=== PATIENT | female | born 1975 | race African-American/Black ===

== ENCOUNTER 2017-03-02 01:09 | Emergency (ER) | payer SELFPAY ==
[2017-03-02 01:47] VITALS: BP 139/90; PULSE 97; TEMP 97.9; BMI 43.4
--- NOTE | 2017-03-02 02:39 | PDOC ---
History of Present Illness - General Chief Complaint: Pain Stated Complaint: RIGHT KNEE PAIN Time Seen by Provider: 03/02/17 01:28 - History of Present Illness Initial Comments: 03/02/17 02:39 CHIEF COMPLAINT: knee pain HISTORY OF PRESENT ILLNESS: 41 yo F with hx of gastric bypass and chronic b/l knee pain (per patient she has torn meniscus on previous MRI "many years ago"). Patient states she has not seen a pain management doctor "in like a year" and states she has not been taking pain medication. However [facility] CERTIFIED MEDICAL AIDE indicates patient has received 150 tabs of Percocet 4 days prior to this ER visit. Patient also states "I'm collapsing when I walk" but was seen ambulating to bathroom without incident. PAST MEDICAL HISTORY: Denies past medical history FAMILY HISTORY: Denies SOCIAL HISTORY: Denies tobacco, alcohol, illicit drug use. SURGICAL HISTORY: Denies ALLERGIES: No known drug allergies REVIEW OF SYSTEMS General/Constitutional: Denies fever or chills. Denies weakness, weight change. HEENT: Denies change in vision. Denies ear pain or discharge. Denies sore throat. Cardiovascular: Denies chest pain or shortness of breath. Respiratory: Denies cough, wheezing, or hemoptysis. Gastrointestinal: Denies nausea, vomiting, diarrhea or constipation. Denies rectal bleeding. Genitourinary: Denies dysuria, frequency, or change in urination. Musculoskeletal: R knee pain s/p torn meniscus per MRI "years ago." Denies neck or back pain. Skin and breasts: Denies rash or easy bruising. Neurologic: Denies headache, vertigo, loss of consciousness, or loss of sensation. PHYSICAL EXAM General Appearance: Well-appearing, appropriately dressed. No apparent distress. HEENT: EOMI, PERRLA. No conjunctival pallor. No photophobia, scleral icterus. Neck: Supple. Trachea midline. No tenderness, rigidity, carotid bruit, stridor , lymphadenopathy, or thyromegaly. Respiratory/Chest: Lungs CTAB. Cardiovascular: RRR. S1, S2. Vascular Pulses: Dorsalis-Pedis (R): 2+, Dorsalis-Pedis (L): 2+ Musculoskeletal/Extremities: Normal inspection. FROM of all extremities, normal capillary refill. Pelvis Stable. No CVA tenderness. No tenderness to extremities, pedal edema, swelling, erythema or deformity. Integumentary: Appropriate color, dry, warm. No cyanosis, erythema, jaundice or rash Neurologic: crystal report developer II-XII intact. Fully oriented, alert. Appropriate mood/affect. Motor strength 5/5. No appreciable EOM palsy, facial droop or sensory deficit. 03/02/17 03:32 Past History - Past Medical History Allergies/Adverse Reactions: Allergies Allergy/AdvReac Type Severity Reaction Status Date / Time shellfish derived Allergy Intermediate Verified 07/22/16 18:16 Home Medications: Ambulatory Orders No Home Medications 0 dose .ROUTE UTDICT 10/18/12 Cyclobenzaprine HCl [Flexeril -] 10 mg PO TID PRN #15 tablet 07/22/16 Diclofenac Sodium 75 mg PO BID #14 tablet. 03/02/17 Anemia: No Asthma: No Cancer: No Cardiac Disorders: No CVA: No COPD: No CHF: No Dementia: No Diabetes: No GI Disorders: No Disorders: No HTN: No Hypercholesterolemia: No Liver Disease: No Seizures: No Thyroid Disease: No - Surgical History GI Surgery: Yes (gastric bypass 10 years ago) - Psycho/Social/Smoking Cessation Hx Anxiety: No Suicidal Ideation: No Smoking Status: No Smoking History: Never smoked Have you smoked in the past 12 months: No Number of Cigarettes Smoked Daily: 0 Hx Alcohol Use: No Drug/Substance Use Hx: No Hx Substance Use Treatment: No *Physical Exam - Vital Signs Last Vital Signs Temp Pulse Resp BP Pulse Ox 97.9 F 97 H 18 139/90 100 03/02/17 01:34 03/02/17 01:34 03/02/17 01:34 03/02/17 01:34 03/02/17 01:34 ED Treatment Course - ADDITIONAL ORDERS Additional order review: Laboratory Results 03/02/17 01:53 Urine HCG, Qual Negative - RADIOLOGY Radiology Studies Ordered: Category Date Time Status KNEE 2 POS-RIGHT [RAD] Stat Radiology 03/02/17 02:09 Taken Medical Decision Making - Medical Decision Making 03/02/17 03:48 41 yo F with hx of gastric bypass and chronic b/l knee pain (per patient she has torn meniscus on previous MRI "many years ago"). -R knee x-ray -60 mg Toradol IM Patient refused Toradol. X-ray without evidence of acute fracture or discloation. Knee immobilizer applied. ADvised patient to f/u with pain management and/or orthopedics for repeat MRI of knee . 03/02/17 04:18 *DC/Admit/Observation/Transfer Diagnosis at time of Disposition: Right knee pain Qualifiers: Chronicity: chronic Qualified Code(s): M25.561 - Pain in right knee - Discharge Dispostion Disposition: HOME Condition at time of disposition: Stable Admit: No - Prescriptions Prescriptions: Diclofenac Sodium 75 mg PO BID #14 tablet.dr - Referrals Referrals: Bebo Morales [Primary Care Provider] - Henry Ibrahim MD [Staff Physician] - - Patient Instructions Printed Discharge Instructions: DI for Knee Pain Additional Instructions: Please take medication as prescribed. As discussed, you will need to follow up with your pain management doctor or and orthopedic doctor for a repeat MRI of your knee for further evaluation. If you experience any worsening pain, inability to stand or walk, loss of sensation to your legs or decreased temperature to your feet, please return to the ER.
[2017-03-02] MEDS ORDERED: KETOROLAC TROMETHAMINE 60 MG/2 ML VIAL IM ONE (02:54)
[2017-03-02] MEDS ORDERED: KETOROLAC TROMETHAMINE 60 MG/2 ML VIAL ONE (03:29)
== END 2017-03-02 04:19 | disposition home or self-care (01) ==
LOC: JER 01:09
PROC: 2W3QXYZ Immobilization of Right Lower Leg using Other Device (ICD-10-PCS; principal; 2017-03-02)
DX: M25.561 Pain in right knee (principal); G89.29 Other chronic pain; Z98.84 Bariatric surgery status
CPT/HCPCS: 73560-TC-RT; 84703; 99282-25

== ENCOUNTER 2022-06-13 13:00 | Inpatient (IN) | payer OTHER ==
[2022-06-13] MEDS ORDERED: PANTOPRAZOLE SODIUM 40 MG VIAL IVPUSH ONE (14:12)
[2022-06-13] MEDS ORDERED: PANTOPRAZOLE SODIUM 40 MG VIAL ONE (14:25)
[2022-06-13] MEDS ORDERED: ONDANSETRON 4 MG/2 ML VIAL IVPUSH ONE (14:31)
[2022-06-13] MEDS ORDERED: LACTATED RINGERS SOLUTION 1000 ML INFUS.BAG IV ONE (14:32)
[2022-06-13] MEDS ORDERED: ONDANSETRON 4 MG/2 ML VIAL ONE (14:34)
[2022-06-13 14:56] LABS: BASO % 0.6 % (0-2.0); EOS % 0.6 % (0-4.5); HEMATOCRIT 29.2 % (32.4-45.2); LYMPH % 16.2 % (8-40); MCH 38.7 pg (25.7-33.7); MCHC 34.1 g/dl (32.0-36.0); MEAN CELL VOLUME 113.4 fl (80-96); MEAN PLT VOLUME 8.9 fl (7.5-11.1); MONO % 9.7 % (3.8-10.2); NEUT % 72.9 % (42.8-82.8); PLATELET COUNT 265 10^3/uL (134-434); RBC 2.57 M/mm3 (3.60-5.2); RDW 12.8 % (11.6-15.6); WHITE BLOOD COUNT 9.1 K/mm3 (4.0-10.0)
[2022-06-13 15:05] LABS: CALCIUM 8.8 mg/dL (8.5-10.1)
[2022-06-13 15:06] LABS: ALBUMIN 2.2 g/dl (3.4-5.0); BLOOD UREA NITROGEN 22.1 mg/dL (7-18); MAGNESIUM 1.6 mg/dL (1.8-2.4)
[2022-06-13 15:09] LABS: CREATININE 0.5 mg/dL (0.55-1.3)
[2022-06-13 15:10] LABS: TOT PROT 7.7 g/dl (6.4-8.2)
[2022-06-13 15:24] LABS: ANISOCYTOSIS 2+; MACROCYTOSIS 2+
[2022-06-13] MEDS ORDERED: MAGNESIUM SULF 50% (8.12 MEQ/2 ML-1 GM VIAL) IVPB ONE (15:26)
[2022-06-13] MEDS ORDERED: MAGNESIUM 1GM/D5W - 1 GM/100 ML IVPB IVPB ONE (15:40)
[2022-06-13] MEDS ORDERED: predniSONE 20 MG TABLET (UD) PO ONE (17:58)
[2022-06-13] MEDS ORDERED: predniSONE 20 MG TABLET (UD) ONE (18:00)
[2022-06-13] MEDS ORDERED: predniSONE 10 MG TABLET (UD) ONE (18:01)
[2022-06-13] MEDS ORDERED: MAG HYDROX/AL HYDROX/SIMETH 30 ML UNIT-DOSE CUP PO ONE (19:00)
[2022-06-13] MEDS ORDERED: ACETAMINOPHEN 1000 MG/100 ML BAG IVPB ONE (19:00)
[2022-06-13] MEDS ORDERED: FAMOTIDINE 20 MG/50 ML IVPB 20 MG/50 ML MG IVPB ONE (19:00)
[2022-06-13] MEDS ORDERED: MAG HYDROX/AL HYDROX/SIMETH 30 ML UNIT-DOSE CUP ONE (20:10)
[2022-06-13] MEDS ORDERED: ACETAMINOPHEN INJECTION 100 ML IVPB ONE (20:11)
[2022-06-13] MEDS ORDERED: FAMOTIDINE 10 MG/ML VIAL IVPB ONE (20:12)
[2022-06-13] MEDS ORDERED: ACETAMINOPHEN 325 MG TABLET (FP) PO PRN (21:24)
[2022-06-13] MEDS ORDERED: THIAMINE HCL 200 MG/2 ML VIAL ONE (22:02)
[2022-06-13] MEDS: SODIUM CHLORIDE 1,000 ML IV SCH (22:07)
[2022-06-13] MEDS ORDERED: FOLIC ACID INJECTION - 1 MG, THIAMINE HCL 100 MG, MULTIVIT INJECTION ADULT 10 ML in SOD... IVPB ONE (22:30)
[2022-06-13 22:45] LABS: HEMATOCRIT 23.8 % (32.4-45.2); MCH 38.4 pg (25.7-33.7); MCHC 33.6 g/dl (32.0-36.0); MEAN CELL VOLUME 114.1 fl (80-96); MEAN PLT VOLUME 8.9 fl (7.5-11.1); PLATELET COUNT 229 10^3/uL (134-434); RBC 2.08 M/mm3 (3.60-5.2); RDW 12.5 % (11.6-15.6); WHITE BLOOD COUNT 8.2 K/mm3 (4.0-10.0)
[2022-06-13] MEDS: THIAMINE HCL 200 MG/2 ML VIAL IVPB SCH (22:57)
[2022-06-14] MEDS ORDERED: predniSONE 20 MG TABLET (UD) PO ONE ×3 (00:10→09:00)
[2022-06-14 02:53] VITALS: BMI 24.3
[2022-06-14] MEDS ORDERED: diphenhydrAMINE HCL 25 MG CAPSULE (FP) PO ONE ×2 (07:00→09:00)
[2022-06-14] MEDS: SODIUM CHLORIDE 1,000 ML IV SCH (08:30)
[2022-06-14] MEDS ORDERED: oxyCODONE HCL 5 MG TABLET PO ONE (08:45)
[2022-06-14] MEDS ORDERED: ACETAMINOPHEN 325 MG TABLET (FP) PO ONE (08:45)
[2022-06-14] MEDS: THIAMINE HCL 200 MG/2 ML VIAL IVPB SCH (09:14)
[2022-06-14 13:00] LABS: URINE APPEARANCE CLEAR; URINE BILIRUBIN NEGATIVE (NEGATIVE); URINE COLOR YELLOW; URINE GLUCOSE (UA) NEGATIVE (NEGATIVE); URINE KETONE NEGATIVE (NEGATIVE)
[2022-06-14 13:01] LABS: URINE LEUK ESTERASE NEGATIVE (NEGATIVE); URINE NITRITE NEGATIVE (NEGATIVE); URINE PROTEIN NEGATIVE (NEGATIVE); URINE UROBILINOGEN 0.2 mg/dL (0.2-1.0)
[2022-06-14 13:34] LABS: HEMATOCRIT 20.4 % (32.4-45.2); MCHC 32.9 g/dl (32.0-36.0); MEAN CELL VOLUME 115.4 fl (80-96); MEAN PLT VOLUME 9.7 fl (7.5-11.1); PLATELET COUNT 219 10^3/uL (134-434); RBC 1.77 M/mm3 (3.60-5.2); RDW 12.4 % (11.6-15.6)
[2022-06-14 13:41] LABS: INR 2.35 (0.83-1.09); PROTHROMBIN TIME (PATIENT) 27.3 SEC (9.7-13.0)
[2022-06-14 13:43] LABS: HEMOGLOBIN 6.7 GM/dL (10.7-15.3)
[2022-06-14 13:44] LABS: ACTIVATED PTT 41.5 SECONDS (25.2-36.5)
[2022-06-14 13:48] LABS: CHLORIDE 118 mmol/L (98-107); SODIUM 145 mmol/L (136-145)
[2022-06-14 13:52] LABS: ANION GAP 8 MMOL/L (8-16); BLOOD UREA NITROGEN 19.2 mg/dL (7-18); CO2 19 mmol/L (21-32); GLUCOSE,RANDOM 66 mg/dL (74-106); MAGNESIUM 1.3 mg/dL (1.8-2.4)
[2022-06-14 13:55] LABS: CREATININE 0.3 mg/dL (0.55-1.3); PHOSPHOROUS 2.6 mg/dL (2.5-4.9); SGOT/AST 19 U/L (15-37); SGPT/ALT 8 U/L (13-61)
[2022-06-14 13:57] LABS: BILIRUBIN,TOTAL 0.8 mg/dL (0.2-1)
[2022-06-14 13:58] LABS: ALK PHOS 42 U/L (45-117)
[2022-06-14 14:24] LABS: ALBUMIN 1.7 g/dl (3.4-5.0); CALCIUM 6.8 mg/dL (8.5-10.1); TOT PROT 5.3 g/dl (6.4-8.2)
[2022-06-14] MEDS ORDERED: PHYTONADIONE 10 MG/1 ML AMP SQ ONE (16:15)
[2022-06-15] MEDS: PANTOPRAZOLE SODIUM 40 MG VIAL IVPUSH SCH ×3 (00:36→21:34)
[2022-06-15] MEDS: SODIUM CHLORIDE 1,000 ML IV SCH (00:36)
[2022-06-15 08:46] LABS: BASO % 0.5 % (0-2.0); EOS % 0.5 % (0-4.5); HEMATOCRIT 23.4 % (32.4-45.2); HEMOGLOBIN 7.9 GM/dL (10.7-15.3); LYMPH % 11.3 % (8-40); MCH 34.9 pg (25.7-33.7); MCHC 33.7 g/dl (32.0-36.0); MEAN CELL VOLUME 103.4 fl (80-96); MEAN PLT VOLUME 9.3 fl (7.5-11.1); MONO % 3.8 % (3.8-10.2); NEUT % 83.9 % (42.8-82.8); PLATELET COUNT 177 10^3/uL (134-434); RBC 2.26 M/mm3 (3.60-5.2); RDW 20.5 % (11.6-15.6); WHITE BLOOD COUNT 12.5 K/mm3 (4.0-10.0)
[2022-06-15 08:47] LABS: INR 1.12 (0.83-1.09); PROTHROMBIN TIME (PATIENT) 12.9 SEC (9.7-13.0)
[2022-06-15 08:49] LABS: ACTIVATED PTT 27.6 SECONDS (25.2-36.5)
[2022-06-15 09:15] LABS: BLOOD UREA NITROGEN 20.8 mg/dL (7-18)
[2022-06-15 09:18] LABS: CREATININE 0.6 mg/dL (0.55-1.3)
[2022-06-15 09:20] LABS: BILIRUBIN,TOTAL 2.2 mg/dL (0.2-1)
[2022-06-15 09:21] LABS: TOT PROT 6.4 g/dl (6.4-8.2)
[2022-06-15 09:26] LABS: ALBUMIN 2.3 g/dl (3.4-5.0); CALCIUM 8.6 mg/dL (8.5-10.1)
[2022-06-15] MEDS ORDERED: FENTANYL CITRATE/PF 50 MCG/ML VIAL ONE (09:41)
[2022-06-15] MEDS ORDERED: MIDAZOLAM HCL 2 MG/2 ML SINGLE DOSE VIAL ONE (09:41)
[2022-06-15] MEDS ORDERED: PHYTONADIONE 10 MG/1 ML AMP SQ SCH ×2 (10:00→20:36)
[2022-06-15] MEDS: THIAMINE HCL 200 MG/2 ML VIAL IVPB SCH (10:00)
[2022-06-15] MEDS ORDERED: LACTATED RINGERS SOLUTION 1,000 ML IV SCH ×2 (12:15→12:28)
[2022-06-15] MEDS ORDERED: ONDANSETRON 4 MG/2 ML VIAL IVPUSH PRN ×3 (12:15→15:22)
[2022-06-15] MEDS ORDERED: ACETAMINOPHEN 325 MG TABLET (FP) PO PRN (12:28)
[2022-06-15 14:02] LABS: BASO % 0.7 % (0-2.0); EOS % 1.4 % (0-4.5); LYMPH % 18.6 % (8-40); MCH 36.2 pg (25.7-33.7); MCHC 35.4 g/dl (32.0-36.0); MEAN CELL VOLUME 102.4 fl (80-96); MEAN PLT VOLUME 8.1 fl (7.5-11.1); MONO % 7.8 % (3.8-10.2); NEUT % 71.5 % (42.8-82.8); PLATELET COUNT 139 10^3/uL (134-434); RBC 1.86 M/mm3 (3.60-5.2); RDW 20.8 % (11.6-15.6)
[2022-06-15 14:07] LABS: HEMOGLOBIN 6.7 GM/dL (10.7-15.3)
[2022-06-15] MEDS: MUPIROCIN 2% TOPICAL OINTMENT FOR DECOLONIZATION NS SCH ×2 (17:59→22:05)
[2022-06-15] MEDS ORDERED: PEG 3350/NA SULF BICARB CL/KCL 4000 ML SOLN.RECON PO ONE ×2 (19:00)
[2022-06-15] MEDS: CHLORHEXIDINE GLUCONATE 4% CLEANSER FOR DECOLONIZATION TP SCH (21:34)
[2022-06-15] MEDS: PHYTONADIONE 10 MG/1 ML AMP SQ SCH (21:34)
[2022-06-15 21:45] LABS: BASO % 1.1 % (0-2.0); EOS % 1.7 % (0-4.5); HEMATOCRIT 29.4 % (32.4-45.2); HEMOGLOBIN 10.1 GM/dL (10.7-15.3); LYMPH % 22.5 % (8-40); MCH 33.6 pg (25.7-33.7); MCHC 34.5 g/dl (32.0-36.0); MEAN CELL VOLUME 97.3 fl (80-96); MEAN PLT VOLUME 9.7 fl (7.5-11.1); MONO % 9.1 % (3.8-10.2); NEUT % 65.6 % (42.8-82.8); PLATELET COUNT 171 10^3/uL (134-434); RBC 3.02 M/mm3 (3.60-5.2); RDW 21.7 % (11.6-15.6); WHITE BLOOD COUNT 8.7 K/mm3 (4.0-10.0)
[2022-06-15] MEDS ORDERED: PANTOPRAZOLE SODIUM 40 MG VIAL IVPUSH SCH (22:00)
[2022-06-16 07:39] LABS: BASO % 0.9 % (0-2.0); EOS % 2.4 % (0-4.5); HEMATOCRIT 25.7 % (32.4-45.2); MCH 34.3 pg (25.7-33.7); MCHC 35.1 g/dl (32.0-36.0); MEAN CELL VOLUME 97.8 fl (80-96); MEAN PLT VOLUME 8.9 fl (7.5-11.1); MONO % 8.9 % (3.8-10.2); NEUT % 66.8 % (42.8-82.8); PLATELET COUNT 145 10^3/uL (134-434); RBC 2.62 M/mm3 (3.60-5.2); RDW 22.2 % (11.6-15.6)
[2022-06-16 08:00] LABS: INR 1.27 (0.83-1.09); PROTHROMBIN TIME (PATIENT) 14.6 SEC (9.7-13.0)
[2022-06-16 08:03] LABS: ACTIVATED PTT 28.2 SECONDS (25.2-36.5)
[2022-06-16 08:05] LABS: CALCIUM 8.2 mg/dL (8.5-10.1)
[2022-06-16 08:06] LABS: ALBUMIN 2.2 g/dl (3.4-5.0); BLOOD UREA NITROGEN 8.2 mg/dL (7-18); MAGNESIUM 1.4 mg/dL (1.8-2.4)
[2022-06-16 08:09] LABS: CREATININE 0.5 mg/dL (0.55-1.3)
[2022-06-16 08:10] LABS: BILIRUBIN,TOTAL 1.6 mg/dL (0.2-1)
[2022-06-16] MEDS ORDERED: MAGNESIUM SULF 50% (8.12 MEQ/2 ML-1 GM VIAL) IVPB ONE (08:59)
[2022-06-16] MEDS: PANTOPRAZOLE SODIUM 40 MG VIAL IVPUSH SCH ×2 (09:45→21:51)
[2022-06-16] MEDS: MUPIROCIN 2% TOPICAL OINTMENT FOR DECOLONIZATION NS SCH ×2 (09:45→21:51)
[2022-06-16] MEDS ORDERED: PHYTONADIONE 10 MG/1 ML AMP SQ SCH ×2 (10:00)
[2022-06-16] MEDS ORDERED: THIAMINE HCL 200 MG/2 ML VIAL IVPB SCH ×2 (10:00)
[2022-06-16] MEDS: PHYTONADIONE 10 MG/1 ML AMP SQ SCH (10:07)
[2022-06-16] MEDS: LACTATED RINGERS SOLUTION 1,000 ML IV SCH ×2 (10:07→16:26)
[2022-06-16 20:18] LABS: HEMOGLOBIN 10.8 GM/dL (10.7-15.3); MCH 33.2 pg (25.7-33.7); MCHC 33.8 g/dl (32.0-36.0); MEAN CELL VOLUME 98.2 fl (80-96); MEAN PLT VOLUME 9.4 fl (7.5-11.1); PLATELET COUNT 202 10^3/uL (134-434); RBC 3.26 M/mm3 (3.60-5.2); RDW 22.1 % (11.6-15.6); WHITE BLOOD COUNT 13.8 K/mm3 (4.0-10.0)
[2022-06-16] MEDS: CHLORHEXIDINE GLUCONATE 4% CLEANSER FOR DECOLONIZATION TP SCH (21:51)
[2022-06-17] MEDS ORDERED: LABETALOL HCL 200 MG TABLET (FP) PO ONE (03:45)
[2022-06-17 03:56] VITALS: RESP 18
[2022-06-17] MEDS ORDERED: THIAMINE HCL 200 MG/2 ML VIAL IVPB SCH (10:00)
[2022-06-17] MEDS ORDERED: PANTOPRAZOLE SODIUM 40 MG VIAL IVPUSH SCH (10:00)
[2022-06-17] MEDS ORDERED: PHYTONADIONE 10 MG/1 ML AMP SQ SCH (10:00)
[2022-06-17] MEDS: LACTATED RINGERS SOLUTION 1,000 ML IV SCH (10:24)
[2022-06-17 16:21] LABS: HEMATOCRIT 31.2 % (32.4-45.2); HEMOGLOBIN 10.6 GM/dL (10.7-15.3); MCH 33.7 pg (25.7-33.7); MCHC 33.8 g/dl (32.0-36.0); MEAN CELL VOLUME 99.7 fl (80-96); PLATELET COUNT 227 10^3/uL (134-434); RBC 3.13 M/mm3 (3.60-5.2); RDW 21.1 % (11.6-15.6); WHITE BLOOD COUNT 9.6 K/mm3 (4.0-10.0)
[2022-06-17 16:25] LABS: CALCIUM 8.7 mg/dL (8.5-10.1)
[2022-06-17 16:26] LABS: ALBUMIN 2.5 g/dl (3.4-5.0); BLOOD UREA NITROGEN 6.2 mg/dL (7-18); MAGNESIUM 1.6 mg/dL (1.8-2.4)
[2022-06-17 16:29] LABS: CREATININE 0.6 mg/dL (0.55-1.3)
[2022-06-17 16:30] LABS: BILIRUBIN,TOTAL 1.1 mg/dL (0.2-1); TOT PROT 7.1 g/dl (6.4-8.2)
[2022-06-17] MEDS ORDERED: POTASSIUM CHLORIDE TABS 20 MEQ TABLET.ER (FP) PO ONE ×2 (16:52→17:02)
[2022-06-17] MEDS ORDERED: MAGNESIUM 2GM/50ML STERILE WATER IVPB IVPB ONE (17:02)
[2022-06-17 18:45] VITALS: BP 155/98; PULSE 81; TEMP 97.5
[2022-06-18] MEDS ORDERED: PANTOPRAZOLE 40 MG TABLET PO SCH (10:00)
== END 2022-06-17 19:07 | disposition home or self-care (01) | DRG 244 ==
LOC: JER 13:00 → JERBED 18:16 → J8W 06-14 02:21 → JICU 06-15 14:55 → J5S 06-16 23:33
PROVIDERS: ADMIT Internal Medicine; ATTEND Internal Medicine
PROC: 30233N1 Transfusion of Nonautologous Red Blood Cells into Peripheral Vein, Percutaneous Approach (ICD-10-PCS; 2022-06-14)
PROC: 30233L1 Transfusion of Nonautologous Fresh Plasma into Peripheral Vein, Percutaneous Approach (ICD-10-PCS; 2022-06-14)
PROC: 30233K1 Transfusion of Nonautologous Frozen Plasma into Peripheral Vein, Percutaneous Approach (ICD-10-PCS; 2022-06-14)
PROC: 0DBN8ZX Excision of Sigmoid Colon, Via Natural or Artificial Opening Endoscopic, Diagnostic (ICD-10-PCS; principal; 2022-06-16 13:00)
DX: K57.31 Diverticulosis of large intestine without perforation or abscess with bleeding (principal); D62 Acute posthemorrhagic anemia; D68.9 Coagulation defect, unspecified; K86.89 Other specified diseases of pancreas; R16.1 Splenomegaly, not elsewhere classified; F10.10 Alcohol abuse, uncomplicated; K46.9 Unspecified abdominal hernia without obstruction or gangrene; E87.6 Hypokalemia; D72.829 Elevated white blood cell count, unspecified; K76.0 Fatty (change of) liver, not elsewhere classified; R59.0 Localized enlarged lymph nodes; K64.8 Other hemorrhoids
CPT/HCPCS: 0241U-QW; 36415; 36430; 36511; 71045-TC-FY; 74174-TC; 80053; 81003; 82272; 82607; 82728; 82747; 83540; 83550; 83690; 83735; 84100; 84703; 85014; 85025; 85027; 85610; 85730; 86850; 86900; 86901; 86922; 87045; 87046; 87205; 88305-TC; 93005; 93010; 94760; 99285-25; P9016; P9017; P9058

== ENCOUNTER 2022-12-10 13:57 | Inpatient (IN) | payer OTHER ==
[2022-12-10 15:53] LABS: BASO % 0.5 % (0-2.0); HEMATOCRIT 19.2 % (32.4-45.2); LYMPH % 13.6 % (8-40); MCH 30.1 pg (25.7-33.7); MCHC 31.2 g/dl (32.0-36.0); MEAN CELL VOLUME 96.4 fl (80-96); MEAN PLT VOLUME 8.8 fl (7.5-11.1); MONO % 8.6 % (3.8-10.2); NEUT % 77.3 % (42.8-82.8); PLATELET COUNT 240 10^3/uL (134-434); RDW 18.7 % (11.6-15.6); WHITE BLOOD COUNT 5.6 K/mm3 (4.0-10.0)
[2022-12-10 16:00] LABS: INR 1.87 (0.83-1.09); PROTHROMBIN TIME (PATIENT) 21.6 SEC (9.7-13.0)
[2022-12-10 16:03] LABS: ACTIVATED PTT 31.5 SECONDS (25.2-36.5)
[2022-12-10 16:07] LABS: POTASSIUM 4.8 mmol/L (3.5-5.1)
[2022-12-10 16:10] LABS: ALBUMIN 2.9 g/dl (3.4-5.0); CALCIUM 9.1 mg/dL (8.5-10.1)
[2022-12-10 16:11] LABS: BLOOD UREA NITROGEN 12.9 mg/dL (7-18); MAGNESIUM 1.2 mg/dL (1.8-2.4)
[2022-12-10 16:13] LABS: CREATININE 0.7 mg/dL (0.55-1.3)
[2022-12-10] MEDS ORDERED: MAGNESIUM SULF 50% (8.12 MEQ/2 ML-1 GM VIAL) IVPB ONE (16:13)
[2022-12-10 16:15] LABS: TOT PROT 7.6 g/dl (6.4-8.2)
[2022-12-10] MEDS ORDERED: ONDANSETRON 4 MG/2 ML VIAL IVPUSH ONE (16:18)
[2022-12-10] MEDS ORDERED: SODIUM CHLORIDE 1,000 ML IV SCH (16:30)
[2022-12-10] MEDS ORDERED: MAGNESIUM SULFATE IN WATER 2 GM/50 ML IVPB IVPB ONE (17:22)
[2022-12-10] MEDS ORDERED: PANTOPRAZOLE SODIUM 40 MG VIAL IVPUSH ONE (17:24)
[2022-12-10] MEDS ORDERED: LORazepam 2 MG/ML SDV VIAL IVPUSH PRN (17:29)
[2022-12-10 18:32] LABS: BILIRUBIN,DIRECT 0.7 mg/dL (0.0-0.2)
[2022-12-10] MEDS ORDERED: PANTOPRAZOLE SODIUM 40 MG VIAL ONE (20:58)
[2022-12-10] MEDS: DEXTROSE 5%-LACTATED RINGERS 1,000 ML IV SCH (23:15)
[2022-12-11 00:35] LABS: BASO % 0.5 % (0-2.0); LYMPH % 19.5 % (8-40); MCH 29.7 pg (25.7-33.7); MCHC 31.8 g/dl (32.0-36.0); MEAN CELL VOLUME 93.5 fl (80-96); MEAN PLT VOLUME 8.3 fl (7.5-11.1); MONO % 14.9 % (3.8-10.2); NEUT % 65.1 % (42.8-82.8); PLATELET COUNT 229 10^3/uL (134-434); RBC 2.04 M/mm3 (3.60-5.2); RDW 18.6 % (11.6-15.6); WHITE BLOOD COUNT 6.5 K/mm3 (4.0-10.0)
[2022-12-11 00:42] LABS: HEMOGLOBIN 6.1 GM/dL (10.7-15.3)
[2022-12-11] MEDS ORDERED: PHYTONADIONE 10 MG/1 ML AMP IVPB ONE (01:00)
[2022-12-11 01:18] LABS: LACTIC ACID 5.9 mmol/L (0.4-2.0)
[2022-12-11] MEDS ORDERED: PANTOPRAZOLE SODIUM 160 MG in SODIUM CHLORIDE 250 ML IVPB SCH (09:00)
[2022-12-11] MEDS: FOLIC ACID 1 MG TABLET (FP) PO SCH (09:23)
[2022-12-11] MEDS: THIAMINE HCL 200 MG/2 ML VIAL IVPB SCH (09:23)
[2022-12-11] MEDS: MUPIROCIN 2% TOPICAL OINTMENT FOR DECOLONIZATION NS SCH ×2 (09:23→21:10)
[2022-12-11 09:35] LABS: BASO % 1.1 % (0-2.0); EOS % 0.1 % (0-4.5); HEMATOCRIT 25.4 % (32.4-45.2); HEMOGLOBIN 8.6 GM/dL (10.7-15.3); LYMPH % 26.2 % (8-40); MCH 30.8 pg (25.7-33.7); MCHC 33.7 g/dl (32.0-36.0); MEAN CELL VOLUME 91.4 fl (80-96); MEAN PLT VOLUME 8.8 fl (7.5-11.1); MONO % 15.4 % (3.8-10.2); NEUT % 57.2 % (42.8-82.8); PLATELET COUNT 171 10^3/uL (134-434); RBC 2.78 M/mm3 (3.60-5.2); RDW 17.2 % (11.6-15.6); RETICULOCYTES 2.88 % (0.5-1.5); WHITE BLOOD COUNT 5.1 K/mm3 (4.0-10.0)
[2022-12-11 09:40] LABS: INR 1.94 (0.83-1.09); PROTHROMBIN TIME (PATIENT) 22.4 SEC (9.7-13.0)
[2022-12-11 09:43] LABS: ACTIVATED PTT 34.2 SECONDS (25.2-36.5)
[2022-12-11] MEDS ORDERED: PANTOPRAZOLE SODIUM 40 MG VIAL IVPUSH SCH (10:00)
[2022-12-11 10:01] LABS: POTASSIUM 4.1 mmol/L (3.5-5.1)
[2022-12-11 10:06] LABS: ALBUMIN 2.5 g/dl (3.4-5.0); BLOOD UREA NITROGEN 16.3 mg/dL (7-18); CALCIUM 8.5 mg/dL (8.5-10.1); MAGNESIUM 1.3 mg/dL (1.8-2.4)
[2022-12-11 10:09] LABS: CREATININE 0.7 mg/dL (0.55-1.3); PHOSPHOROUS 1.7 mg/dL (2.5-4.9)
[2022-12-11 10:11] LABS: BILIRUBIN,TOTAL 2.9 mg/dL (0.2-1); TOT PROT 6.2 g/dl (6.4-8.2)
[2022-12-11 10:34] LABS: LACTIC ACID 4.1 mmol/L (0.4-2.0)
[2022-12-11] MEDS ORDERED: OCTREOTIDE ACETATE 50 MCG/1 ML - 1 ML VIAL IVPUSH ONE (10:45)
[2022-12-11] MEDS ORDERED: MAGNESIUM 2GM/50ML STERILE WATER IVPB IVPB ONE (11:30)
[2022-12-11] MEDS ORDERED: PANTOPRAZOLE SODIUM 160 MG in SODIUM CHLORIDE 290 ML IVPB SCH (11:30)
[2022-12-11] MEDS ORDERED: OCTREOTIDE ACETATE 200 MCG, OCTREOTIDE ACETATE 1,000 MCG in DEXTROSE 5%-WATER - 496 ML IVPB SCH (11:30)
[2022-12-11] MEDS ORDERED: POTASSIUM PHOSPHATE 30 MM in SODIUM CHLORIDE 250 ML IVPB ONE (12:30)
[2022-12-11] MEDS ORDERED: BISACODYL 5 MG TABLET.DR (FP) PO ONE (16:00)
[2022-12-11] MEDS ORDERED: PEG 3350/NA SULF BICARB CL/KCL 4000 ML SOLN.RECON PO ONE (17:00)
[2022-12-11 18:24] LABS: HEMATOCRIT 25.7 % (32.4-45.2); HEMOGLOBIN 8.6 GM/dL (10.7-15.3); MCH 29.8 pg (25.7-33.7); MCHC 33.5 g/dl (32.0-36.0); MEAN PLT VOLUME 7.7 fl (7.5-11.1); PLATELET COUNT 187 10^3/uL (134-434); RBC 2.89 M/mm3 (3.60-5.2); RDW 17.1 % (11.6-15.6); WHITE BLOOD COUNT 6.8 K/mm3 (4.0-10.0)
[2022-12-11] MEDS ORDERED: CHLORHEXIDINE GLUCONATE 4% CLEANSER FOR DECOLONIZATION TP SCH (22:00)
[2022-12-12] MEDS: DEXTROSE 5%-LACTATED RINGERS 1,000 ML IV SCH (06:22)
[2022-12-12 07:22] LABS: BASO % 0.9 % (0-2.0); EOS % 0.9 % (0-4.5); HEMOGLOBIN 8.1 GM/dL (10.7-15.3); LYMPH % 27.3 % (8-40); MCH 30.4 pg (25.7-33.7); MCHC 33.8 g/dl (32.0-36.0); MEAN PLT VOLUME 8.9 fl (7.5-11.1); MONO % 16.6 % (3.8-10.2); NEUT % 54.3 % (42.8-82.8); PLATELET COUNT 171 10^3/uL (134-434); RBC 2.67 M/mm3 (3.60-5.2); RDW 17.5 % (11.6-15.6); WHITE BLOOD COUNT 4.5 K/mm3 (4.0-10.0)
[2022-12-12 07:27] LABS: INR 1.56 (0.83-1.09)
[2022-12-12 07:39] LABS: POTASSIUM 3.7 mmol/L (3.5-5.1)
[2022-12-12 07:42] LABS: CALCIUM 8.1 mg/dL (8.5-10.1)
[2022-12-12 07:43] LABS: ALBUMIN 2.6 g/dl (3.4-5.0); BLOOD UREA NITROGEN 15.3 mg/dL (7-18); MAGNESIUM 1.6 mg/dL (1.8-2.4)
[2022-12-12 07:46] LABS: CREATININE 0.5 mg/dL (0.55-1.3); PHOSPHOROUS 2.4 mg/dL (2.5-4.9)
[2022-12-12 07:48] LABS: BILIRUBIN,TOTAL 1.8 mg/dL (0.2-1); TOT PROT 6.4 g/dl (6.4-8.2)
[2022-12-12] MEDS ORDERED: MAGNESIUM 1GM/D5W 100ML - 100 ML IVPB IVPB ONE (08:00)
[2022-12-12] MEDS ORDERED: POTASSIUM PHOSPHATE 15 MM in SODIUM CHLORIDE 100 ML IVPB ONE (09:00)
[2022-12-12] MEDS: MUPIROCIN 2% TOPICAL OINTMENT FOR DECOLONIZATION NS SCH (09:03)
[2022-12-12] MEDS: FOLIC ACID 1 MG TABLET (FP) PO SCH (09:03)
[2022-12-12] MEDS: THIAMINE HCL 200 MG/2 ML VIAL IVPB SCH (09:03)
[2022-12-12 14:26] VITALS: BP 134/111; PULSE 67; RESP 15; TEMP 98.4
[2022-12-12] MEDS ORDERED: MAGNESIUM OXIDE 400 MG TABLET (FP) PO ONE (15:00)
[2022-12-12 15:30] VITALS: BMI 28.7
== END 2022-12-12 16:11 | disposition home or self-care (01) | DRG 253 ==
LOC: JER 13:57 → JERBED 16:15 → OBSVTOIN 17:26 → JICU 22:49
PROVIDERS: ADMIT Internal Medicine; ATTEND Internal Medicine Pulmonary Disease
PROC: 30233R1 Transfusion of Nonautologous Platelets into Peripheral Vein, Percutaneous Approach (ICD-10-PCS; 2022-12-11)
PROC: 30233L1 Transfusion of Nonautologous Fresh Plasma into Peripheral Vein, Percutaneous Approach (ICD-10-PCS; 2022-12-11)
PROC: 30233K1 Transfusion of Nonautologous Frozen Plasma into Peripheral Vein, Percutaneous Approach (ICD-10-PCS; 2022-12-11)
PROC: 0DJ08ZZ Inspection of Upper Intestinal Tract, Via Natural or Artificial Opening Endoscopic (ICD-10-PCS; 2022-12-11)
PROC: 05HF33Z Insertion of Infusion Device into Left Cephalic Vein, Percutaneous Approach (ICD-10-PCS; 2022-12-11)
PROC: 30233N1 Transfusion of Nonautologous Red Blood Cells into Peripheral Vein, Percutaneous Approach (ICD-10-PCS; principal; 2022-12-11 13:15)
PROC: 0DJD8ZZ Inspection of Lower Intestinal Tract, Via Natural or Artificial Opening Endoscopic (ICD-10-PCS; 2022-12-12)
DX: K92.2 Gastrointestinal hemorrhage, unspecified (principal); E83.42 Hypomagnesemia; K70.9 Alcoholic liver disease, unspecified; K70.10 Alcoholic hepatitis without ascites; F10.10 Alcohol abuse, uncomplicated; K57.90 Diverticulosis of intestine, part unspecified, without perforation or abscess without bleeding; R74.01 Elevation of levels of liver transaminase levels; D62 Acute posthemorrhagic anemia; K44.9 Diaphragmatic hernia without obstruction or gangrene
CPT/HCPCS: 0241U-QW; 36415; 36430; 76705-TC; 80053; 82248; 82272; 82728; 82962; 83540; 83550; 83605; 83690; 83735; 84100; 84436; 84443; 84479; 84484; 84703; 85025; 85027; 85045; 85610; 85730; 86850; 86900; 86901; 86922; 93005; 93010; 99291; G0378; P9017; P9034; P9058

== ENCOUNTER 2023-07-08 23:21 | Emergency (ER) | payer OTHER ==
[2023-07-08 23:31] VITALS: BMI 28.8
[2023-07-08 23:45] VITALS: BP 124/90; PULSE 85; RESP 18; TEMP 97.7
== END 2023-07-09 04:25 | disposition home or self-care (01) ==
LOC: FER 23:21
DX: M25.552 Pain in left hip (principal); M25.561 Pain in right knee; M25.562 Pain in left knee; G89.29 Other chronic pain
CPT/HCPCS: 72170-TC-FY; 73502-TC-LT-FY; 99283-25

== ENCOUNTER 2023-09-15 07:16 | Inpatient (IN) | payer OTHER ==
[2023-09-15] MEDS ORDERED: MAG HYDROX/AL HYDROX/SIMETH 30 ML UNIT-DOSE CUP ONE (08:43)
[2023-09-15] MEDS ORDERED: ACETAMINOPHEN INJECTION 0 ML IVPB ONE (08:43)
[2023-09-15] MEDS ORDERED: ONDANSETRON 4 MG/2 ML VIAL ONE (08:44)
[2023-09-15] MEDS: SODIUM CHLORIDE 0.9% 500 ML INFUS.BAG IV ONE (09:00)
[2023-09-15] MEDS: MAG HYDROX/AL HYDROX/SIMETH 30 ML UNIT-DOSE CUP PO ONE (09:00)
[2023-09-15 09:17] LABS: BASO % 0.3 % (0-2.0); HEMATOCRIT 40.2 % (32.4-45.2); LYMPH % 8.3 % (8-40); MCH 31.5 pg (25.7-33.7); MCHC 32.2 g/dl (32.0-36.0); MEAN CELL VOLUME 97.7 fl (80-96); MEAN PLT VOLUME 8.5 fl (7.5-11.1); NEUT % 85.4 % (42.8-82.8); PLATELET COUNT 210 10^3/uL (134-434); RBC 4.12 M/mm3 (3.60-5.2); WHITE BLOOD COUNT 4.7 K/mm3 (4.0-10.0)
[2023-09-15] MEDS: ONDANSETRON 4 MG/2 ML VIAL IVPUSH ONE (09:30)
[2023-09-15] MEDS: ACETAMINOPHEN 1000 MG/100 ML BAG IVPB ONE (09:30)
[2023-09-15 10:06] LABS: POTASSIUM 4.7 mmol/L (3.5-5.1)
[2023-09-15 10:07] LABS: CALCIUM 9.7 mg/dL (8.5-10.1)
[2023-09-15 10:08] LABS: ALBUMIN 3.7 g/dl (3.4-5.0); BLOOD UREA NITROGEN 8.6 mg/dL (7-18)
[2023-09-15 10:11] LABS: CREATININE 0.6 mg/dL (0.55-1.3)
[2023-09-15 10:12] LABS: BILIRUBIN,TOTAL 1.8 mg/dL (0.2-1); TOT PROT 9.8 g/dl (6.4-8.2)
[2023-09-15] MEDS ORDERED: FAMOTIDINE 20 MG/50 ML IVPB 20 MG/50 ML MG IVPB ONE (10:27)
[2023-09-15] MEDS ORDERED: ACETAMINOPHEN INJECTION 100 ML IVPB ONE (10:27)
[2023-09-15] MEDS: FAMOTIDINE 20 MG/50 ML IVPB 20 MG/50 ML MG IVPB ONE (11:04)
[2023-09-15] MEDS ORDERED: IOHEXOL (OMNIPAQUE PO) 12 MG/ML - 500 ML BOTTLE PO ONE (11:14)
[2023-09-15] MEDS: morphine CARPU-JECT 4 MG/1 ML DISP.SYRIN IVPUSH ONE (15:30)
[2023-09-15] MEDS: LACTATED RINGERS SOLUTION 1000 ML INFUS.BAG IV ONE (15:31)
[2023-09-15] MEDS: TETRACAINE/BENZOCAINE/BUTAMBEN 20 GM SPR TP PRN (15:39)
[2023-09-15] MEDS: DEXTROSE 5%-LACTATED RINGERS 1,000 ML IV SCH (17:43)
[2023-09-15] MEDS: hydrALAZINE HCL 20 MG/ML VIAL IVPUSH PRN (20:45)
[2023-09-15 22:09] VITALS: RESP 18
[2023-09-16 06:32] VITALS: BMI 30.1
[2023-09-16] MEDS: DEXTROSE 5%-LACTATED RINGERS 1,000 ML IV SCH (09:00)
[2023-09-16 09:10] LABS: PH,URINE 5.5 (5.0-8.0); URINE APPEARANCE CLEAR; URINE BILIRUBIN MODERATE (NEGATIVE); URINE COLOR DK YELLOW; URINE GLUCOSE (UA) NEGATIVE (NEGATIVE); URINE KETONE 15 mg/dl (NEGATIVE)
[2023-09-16 09:11] LABS: EPI CELLS 17.1 /uL (0-25.1); HYALINE CASTS 4.69 /uL (0-3.1); URINE BACTERIA 562.5 /uL (0-1359); URINE LEUK ESTERASE TRACE (NEGATIVE); URINE NITRITE POSITIVE (NEGATIVE); URINE PROTEIN TRACE (NEGATIVE); URINE RBC 17.4 /uL (0-23.9); URINE WBC 166.9 /uL (0-25.8)
[2023-09-16 09:34] LABS: BASO % 0.5 % (0-2.0); EOS % 0.6 % (0-4.5); HEMATOCRIT 31.7 % (32.4-45.2); HEMOGLOBIN 10.3 GM/dL (10.7-15.3); LYMPH % 20.3 % (8-40); MCH 31.7 pg (25.7-33.7); MCHC 32.4 g/dl (32.0-36.0); MEAN CELL VOLUME 97.9 fl (80-96); MEAN PLT VOLUME 8.4 fl (7.5-11.1); MONO % 13.4 % (3.8-10.2); NEUT % 65.2 % (42.8-82.8); PLATELET COUNT 189 10^3/uL (134-434); RBC 3.24 M/mm3 (3.60-5.2); RDW 19.2 % (11.6-15.6); WHITE BLOOD COUNT 4.3 K/mm3 (4.0-10.0)
[2023-09-16] MEDS: LACTATED RINGERS SOLUTION 1000 ML INFUS.BAG IV ONE (09:57)
[2023-09-16 10:08] LABS: POTASSIUM 3.4 mmol/L (3.5-5.1)
[2023-09-16 10:13] LABS: CALCIUM 8.8 mg/dL (8.5-10.1)
[2023-09-16 10:14] LABS: BLOOD UREA NITROGEN 6.6 mg/dL (7-18)
[2023-09-16 10:17] LABS: CREATININE 0.5 mg/dL (0.55-1.3)
[2023-09-16 10:50] LABS: MAGNESIUM 1.7 mg/dL (1.8-2.4)
[2023-09-16] MEDS: KCL 10 MEQ IVPB 10 MEQ/100 ML INFUS.BAG IVPB SCH ×2 (15:06→19:17)
[2023-09-16] MEDS: MAGNESIUM 2GM/50ML STERILE WATER IVPB IVPB ONE ×2 (15:08→16:02)
[2023-09-17 03:28] VITALS: PULSE 92
[2023-09-17 07:58] LABS: BASO % 0.5 % (0-2.0); EOS % 0.8 % (0-4.5); HEMATOCRIT 28.8 % (32.4-45.2); HEMOGLOBIN 9.5 GM/dL (10.7-15.3); LYMPH % 18.7 % (8-40); MCH 32.3 pg (25.7-33.7); MCHC 32.8 g/dl (32.0-36.0); MEAN CELL VOLUME 98.4 fl (80-96); MEAN PLT VOLUME 8.4 fl (7.5-11.1); MONO % 16.9 % (3.8-10.2); NEUT % 63.1 % (42.8-82.8); PLATELET COUNT 160 10^3/uL (134-434); RBC 2.93 M/mm3 (3.60-5.2); WHITE BLOOD COUNT 4.7 K/mm3 (4.0-10.0)
[2023-09-17 08:27] LABS: POTASSIUM 3.5 mmol/L (3.5-5.1)
[2023-09-17] MEDS ORDERED: DEXTROSE 5%-LACTATED RINGERS 1,000 ML IV SCH (08:31)
[2023-09-17 08:33] LABS: CALCIUM 8.4 mg/dL (8.5-10.1)
[2023-09-17 08:34] LABS: BLOOD UREA NITROGEN 3.1 mg/dL (7-18); MAGNESIUM 1.5 mg/dL (1.8-2.4)
[2023-09-17 08:37] LABS: CREATININE 0.5 mg/dL (0.55-1.3)
[2023-09-17 08:39] LABS: BILIRUBIN,TOTAL 1.4 mg/dL (0.2-1)
[2023-09-17 08:50] LABS: ALBUMIN 2.7 g/dl (3.4-5.0); TOT PROT 6.7 g/dl (6.4-8.2)
[2023-09-17] MEDS: MAGNESIUM SULF 50% (8.12 MEQ/2 ML-1 GM VIAL) IVPB ONE (09:22)
[2023-09-17 16:08] VITALS: BP 126/84; TEMP 98.2
== END 2023-09-17 18:04 | disposition home or self-care (01) | DRG 247 ==
LOC: JER 07:16 → JERBED 14:15 → J6S 18:58
PROVIDERS: ADMIT Internal Medicine; ATTEND Student in an Organized Health Care Education/Training Program
DX: K56.609 Unspecified intestinal obstruction, unspecified as to partial versus complete obstruction (principal); K86.1 Other chronic pancreatitis; I10 Essential (primary) hypertension; F10.139 Alcohol abuse with withdrawal, unspecified; K57.90 Diverticulosis of intestine, part unspecified, without perforation or abscess without bleeding; Z98.84 Bariatric surgery status; K76.0 Fatty (change of) liver, not elsewhere classified
CPT/HCPCS: 36415; 74018-TC-FY; 74019-TC-FY; 74177-TC; 76705-TC; 80048; 80053; 81003; 83605; 83690; 83735; 84703; 85025; 87086; 99285-25; J0131; Q9967

== ENCOUNTER 2024-03-16 22:07 | Emergency (ER) | payer OTHER ==
[2024-03-16 22:12] VITALS: BP 123/75; PULSE 95; RESP 18; TEMP 98; BMI 28.2
== END 2024-03-17 00:27 | disposition home or self-care (01) ==
LOC: JER 22:07 → JERFT 22:07 → JER 03-17 00:27
DX: M25.561 Pain in right knee (principal); F10.10 Alcohol abuse, uncomplicated; Y90.9 Presence of alcohol in blood, level not specified
CPT/HCPCS: 93971-TC; 99284-25